=== PATIENT | female | born 1985 | race Native Hawaiian/Other Pacific Islander ===

== ENCOUNTER 2018-01-29 19:33 | Emergency (ER) | payer OTHER ==
[2018-01-29] MEDS ORDERED: MOTRIN PO ONE (22:11)
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
[2018-01-29 23:21] VITALS: BP 102/70
== END 2018-01-29 23:22 | disposition home or self-care (01) ==
LOC: ED 19:33
DX: S00.03XA Contusion of scalp, initial encounter (principal); S13.4XXA Sprain of ligaments of cervical spine, initial encounter; E11.9 Type 2 diabetes mellitus without complications; V89.2XXA Person injured in unspecified motor-vehicle accident, traffic, initial encounter; Y93.89 Activity, other specified; Y92.488 Other paved roadways as the place of occurrence of the external cause; Y99.8 Other external cause status
CPT/HCPCS: 70450; 72125; 99283